=== PATIENT | male | born 1985 | race African-American/Black ===

== ENCOUNTER → 2018-11-18 | Outpatient (CLI) | payer OTHER | LOC: FIMAGING 07:54 | PROVIDERS: ATTEND Physician Assistant | DX: R10.31 Right lower quadrant pain (principal) ==

== ENCOUNTER 2019-02-24 12:03 | Emergency (ER) | payer OTHER ==
--- NOTE | 2019-02-24 12:36 | EDPHY ---
H & P Time Seen by Provider: 02/24/19 12:36 HPI/ROS: CHIEF COMPLAINT: Headache and fever and chills HISTORY OF PRESENT ILLNESS: 33-year-old man just returned from [facility] on February 11. [place] prophylaxis, no fresh water exposure. 4 days ago started feeling chilled and had hot and cold, developed a headache this past Friday associated with fever and sweating was seen yesterday at urgent care. Today he had vomiting and diarrhea at 5:30 a.m. And 6:00 a.m., with a little bit of abdominal pain. Right now he says his head hurts and that is the primary thing. He has fever and chills. It is moderate intensity and not better worse with anything. Not associated with stiff or skin rash. No ear or throat symptoms. REVIEW OF SYSTEMS: Eye: no change in vision ENT: no sore throat Cardiac: no chest pain or syncope Pulmonary: no cough or SOB Abdomen: HPI Musculoskeletal: no back pain or neck stiffness Skin: no rash Neuro: HPI Constitutional: no fever : no urinary symptoms A comprehensive 10 point review of systems is otherwise negative aside from elements mentioned in the history of present illness. PAST MEDICAL HISTORY: Migraine headaches Social history: Return from [facility] February 11 General Appearance: Alert and conversant, cooperative. Eyes: No scleral icterus. ENT, Mouth: Normal mucous membranes. Normal tympanic membranes. Respiratory: Normal respiratory effort, breath sounds equal, lungs are clear to auscultation. Cardiovascular: Regular rate and rhythm. Gastrointestinal: Abdomen is soft and non tender. No rebound or guarding. Neurological: Alert, face symmetric, normal motor and sensory in extremities. Ambulatory and normally conversant. Skin: Warm and dry, no rashes. Musculoskeletal: No neck stiffness. Psychiatric: Not agitated. Emergency Department course/MDM: 1220: Discussed with Dr. Newman prior to arrival, no Ebola risk. Plan for malaria, CBC chemistry LFTs, influenza. Chest x-ray and urinalysis. Lumbar puncture discussed and consented for severe headache and fever, evaluate for meningitis or encephalitis. Fentanyl 100 and Zofran 4 for symptoms. 1448: called by lab, malaria positive, patient informed. Lumbar puncture is 0 red blood cells 0 white blood cell; meningitis unlikely. 1521: Discussed with Trent recommends admit and artemether based regimen. Patient wants to be discharged, his 1st dose of malaria drug is ordered, agrees to wait until he is seen by infectious disease this afternoon, preliminary plan for admission; pending evaluation by ID in the ED. Smoking Status: Never smoked Constitutional: Initial Vital Signs Temperature (C) 37.8 C 02/24/19 12:06 Heart Rate 107 H 02/24/19 12:06 Respiratory Rate 18 02/24/19 12:06 Blood Pressure 103/68 02/24/19 12:06 O2 Sat (%) 97 02/24/19 12:06 O2 Delivery Mode Room Air O2 (L/minute) 2 Allergies/Adverse Reactions: No Known Allergies Allergy (Unverified 02/24/19 12:10) Medical Decision Making - Diagnostics Imaging: I viewed and interpreted images myself Procedures: Procedure: Lumbar puncture. Indication: Headache and fever Risks benefits and alternatives to the procedure were discussed including but not limited to infection, headache, bleeding, and neurologic damage. Consent was obtained. The patient was prepped and draped in the usual sterile fashion. A time out was completed. The entry site was anesthetized with 1% lidocaine and a lumbar puncture was performed with a 23-gauge spinal needle. Approximately 4 mL of clear fluid was obtained. Opening pressure was not obtained. There were no complications. The procedure was performed by myself. Consult/Admit Bed Type: [place] [id number] - Data Points Laboratory Results: Laboratory Results 02/24/19 13:20 02/24/19 13:20 Microbiology Results: MICROBIOLOGY 02/24/19 13:56 Cerebral Spinal Fluid Gram Stain - Final Medications Given: Discontinued Medications Acetaminophen (Tylenol) 1,000 mg PO EDNOW ONE Stop: 02/24/19 14:26 Last Admin: 02/24/19 14:29 Dose: 1,000 mg Artemether/Lumefantrine (Coartem) 4 tab PO EDNOW ONE Stop: 02/24/19 15:24 Last Admin: 02/24/19 17:07 Dose: 4 tab Fentanyl (Sublimaze) 100 mcg IVP EDNOW ONE Stop: 02/24/19 13:03 Last Admin: 02/24/19 13:27 Dose: 100 mcg Sodium Chloride (Ns) 2,700 mls @ 5,400 mls/hr 30 ml/kg infuse over 30 min ( 2700 ml) IV EDNOW ONE PRN Reason: Protocol Stop: 02/24/19 13:30 Last Admin: 02/24/19 13:17 Dose: 2,700 mls Ibuprofen (Motrin) 800 mg PO ONCE ONE Stop: 02/24/19 16:27 Last Admin: 02/24/19 16:29 Dose: 800 mg Ondansetron HCl (Zofran) 4 mg IVP EDNOW ONE Stop: 02/24/19 13:03 Last Admin: 02/24/19 13:26 Dose: 4 mg Departure - Departure Disposition: Home, Routine, Self-Care Clinical Impression: Malaria Condition: Good Instructions: Artemether/Lumefantrine (By mouth), Malaria (ED) Referrals: Monika Newman MD [Medical Doctor] - As per Instructions
[2019-02-24] MEDS ORDERED: NS 2,700 ML IV ONE (13:01)
[2019-02-24] MEDS ORDERED: ONDANSETRON 4 MG/2 ML VIAL IVP ONE (13:02)
[2019-02-24] MEDS ORDERED: fentaNYL 100 MCG/2 ML INJ IVP ONE (13:02)
[2019-02-24 13:55] LABS: PLATELET COUNT 74 10^3/uL (150-400)
[2019-02-24 14:08] LABS: INR 1.17 (0.83-1.16); PROTIME(PATIENT) 14.4 SEC (12.0-15.0)
[2019-02-24] MEDS ORDERED: ACETAMINOPHEN 500 MG TAB PO ONE (14:25)
[2019-02-24] MEDS ORDERED: [UNRECOGNIZED DRUG - OTHER] PO ONE (15:23)
[2019-02-24 15:53] LABS: MALARIAL PREP POSITIVE (NONE SEEN)
--- NOTE | 2019-02-24 15:53 | HOSPPROG ---
Hospitalist Progress Note Assessment/Plan: 33yo healthy M who returned from [facility] 13 days ago presents with Objective: Vital Signs Temp Pulse Resp BP Pulse Ox 38.0 C 96 16 117/82 H 100 02/24/19 13:47 02/24/19 13:47 02/24/19 13:47 02/24/19 13:47 02/24/19 13:47 PT 14.4 SEC (12.0-15.0) 02/24/19 13:20 INR 1.17 (0.83-1.16) H 02/24/19 13:20 ICD10 Worksheet Patient Problems: Problems Problem Status Onset Malaria Acute
[2019-02-24] MEDS ORDERED: IBUPROFEN 800 MG TAB PO ONE ×2 (16:26→16:27)
[2019-02-24 17:17] VITALS: BP 130/75
--- NOTE | 2019-02-24 20:44 | GCON ---
[f rep st] CONSULTATION INFECTIOUS DISEASE CONSULTATION DATE OF CONSULTATION: 02/24/2019 REASON FOR CONSULTATION: Management of malaria. HISTORY OF PRESENT ILLNESS: 33-year-old man with a remote past medical history of malaria, who is originally from [facility], who returned to [facility] for 2 weeks, as well as [facility], to his . [place]. The patient developed symptoms on February 20, which he described as myalgia, headache , and fever that would come and go. Due to the persistence, he had friends who urged him to seek medical care. He was seen yesterday in an Urgent Care with reportedly normal labs and discharged with an unclear diagnosis. Today, he had vomiting and diarrhea and a little bit of abdominal pain and presented to the emergency room for further evaluation. In the emergency room, he was found to be febrile and tachycardic, and labs were sent which showed a mild leukocytosis , thrombocytopenia, normal LFTs, and a normal creatinine with mild hyponatremia. A lumbar puncture was performed, which was within normal limits. A malaria smear was positive with 0.8% parasitemia. ID is asked to consult for management. PAST MEDICAL HISTORY: Migraine headaches and latent TB. He has not received therapy. SOCIAL HISTORY: He emigrated from [facility] 3 years ago. 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 Occasional alcohol. No tobacco. PAST SURGICAL HISTORY: None. ALLERGIES: NKDA FAMILY HISTORY: His father had tuberculosis. MEDICATIONS: None scheduled at home. In the emergency room, he has received 3 L of IV fluid, pain medicines and Tylenol. REVIEW OF SYSTEMS: A complete 10-point review of systems was performed and is negative except as mentioned in the HPI. PHYSICAL EXAM: VITAL SIGNS: Blood pressure 138/85, heart rate 115, temperature 39.3, sat 98% on room air. GENERAL: This is a very pleasant, conversational male lying flat in bed, in no distress. HEENT: He has injected conjunctivae bilaterally. No jaundice. Oropharynx: Good dentition. Moist mucous membranes. No oral ulcerations or exudates. NECK: Supple. CARDIOVASCULAR: Tachycardic, regular rate. No murmur. CHEST: Clear to auscultation bilaterally. ABDOMEN: Soft, nontender. Bowel sounds are present. EXTREMITIES: No clubbing, cyanosis, or edema. SKIN: No rashes. NEUROLOGIC: He is alert and oriented x4, moving all 4 extremities equally. LABORATORY: White count 10.1, hematocrit 43, platelets of 74, and 81% neutrophils. Creatinine 1.2. AST 35, ALT 37, alkaline phosphatase 102, total bilirubin 1.3. Malaria smear as per HPI. CSF: WBC 0, RBC 0, glucose 68, protein 38. Influenza swab was negative. IMAGING: Chest x-ray showed no focal infiltrates. Normal cardiomediastinal silhouette. IMPRESSION: 33-year-old male with a prior history of malaria, who recently returned to [facility] for his marriage ceremony, who presents with headache, fever, mild thrombocytopenia with a positive malaria smear at 0.8%. Patient has no evidence of central nervous system involvement, has mild thrombocytopenia, therefore has uncomplicated malaria. The patient strongly desires to be discharged home on therapy for malaria and has taken Coartem in the past. He denies any trouble taking this medication previously. Strong warnings regarding worsening symptoms were given to patient and his friend who is at bedside, including inability to tolerate p.o., altered mental status, fever unresponsive to Tylenol and/or ibuprofen. PLAN: 1. The patient was prescribed Coartem 4 tablets, once now, once at 8 hours, then b.i.d. for 2 more days. The patient was given instructions regarding side effects and how to take this medication going forward. 2. Patient is to follow up in my office tomorrow afternoon for ongoing monitoring of symptoms and repeat labs. 3. Patient was encouraged to continue p.o. intake, including electrolyte solutions. 4. Will f/u on malaria PCR to determine if needs primaquine 5. When patient returns [facility] he will need malaria prophylaxis as his immunity from living in endemic area has likely waned while living [place] the [place] Greater than 80 minutes spent on this patients care, greater than 50% of time spent counseling, educating, and coordinating care regarding the above mentioned plan. Thank you for this consultation. We will continue to see the patient as an outpatient. /[id number]/MODL MTDD
== END 2019-02-24 17:14 | disposition home or self-care (01) ==
LOC: UNDOADMOB 15:33
DX: B54 Unspecified malaria (principal); E86.9 Volume depletion, unspecified
CPT/HCPCS: 87798-90; 96374; J2405; J3010